=== PATIENT | male | born 1990 | race Two or more races ===

== ENCOUNTER 2016-12-18 17:58 | Emergency (ER) | payer OTHER ==
[~2016-12-18] VITALS: Ht 162.6 cm; Wt 72.3 kg
[~2016-12-18 17:58] MED LIST: BACTRIM,SEPT1 TABLET PO; BENADRYL50 MG PO; BENZTROPINE MESY1 MG PO; CHLORPROMAZINE100 MG PO; CHLORPROMAZINE200 MG PO; CLONIDINE HCL0.1 MG PO; CLONIDINE HCL0.2 MG PO; COGENTIN0.5 MG PO; COGENTIN1 MG PO; DOCUSATE SODIU100 MG PO; KEPPRA1000 MG PO; KEPPRA500 MG PO; KONSYL PSYLLIU3.4 GM PO; LEVETIRACETAM750 MG PO; LITHOBID300 MG PO; METAMUCIL FIBE3.4 GM PO; MIRALAX255 GM PO; NEURONTIN100 MG PO; NEURONTIN600 MG PO; OMEPRAZOLE20 MG PO; PAROXETINE HCL10 MG PO; PAROXETINE HCL20 MG PO; PAXIL20 MG PO; PRILOSEC20 MG PO; PROPRANOLOL HCL20 MG PO; PROPRANOLOL HCL60 M1 PO; PROPRANOLOL HCL80 M1 PO; QUETIAPINE FUM300 MG PO; SEROQUEL300 MG PO; SEROQUEL400 MG PO
[2016-12-18 22:52] VITALS: BP 121/69
== END 2016-12-18 22:55 | disposition home or self-care (01) ==
LOC: EME 17:58
DX: G40.909 Epilepsy, unspecified, not intractable, without status epilepticus (principal); F84.0 Autistic disorder; F79 Unspecified intellectual disabilities; F31.9 Bipolar disorder, unspecified; F90.9 Attention-deficit hyperactivity disorder, unspecified type; F41.9 Anxiety disorder, unspecified; S09.90XA Unspecified injury of head, initial encounter; S01.552A Open bite of oral cavity, initial encounter; X58.XXXA Exposure to other specified factors, initial encounter; M54.2 Cervicalgia
CPT/HCPCS: 70450; 72125; 99281; 99284; J2060

== ENCOUNTER 2017-02-21 15:32 | Emergency (ER) | payer OTHER ==
[~2017-02-21] VITALS: Ht 162.6 cm; Wt 75.2 kg
[2017-02-21 18:17] LABS: EOSINOPHIL (%) 2.9 % (0-5); EOSINOPHIL COUNT 0.2 K/uL (0-0.3); HEMATOCRIT 40.1 % (38.0-50.0); IMMATURE GRANULOCYTE (%) 0.3 % (0.0-0.7); INSTRUMENT ABS NEUTROPHIL CT 2.9 K/uL; LYMPHOCYTE COUNT 2.2 K/uL (1.0-2.8); MCHC 32.9 G/DL (30.0-36.0); MCV 82.2 FL (86-99); MEAN PLAT.VOLUME 9.2 uM^3 (9.0-12.4); MONOCYTE (%) 9.2 % (3-12); MONOCYTE COUNT 0.5 K/uL (0-0.8); NEUTROPHIL (%) 49.7 % (45-76); NEUTROPHIL COUNT 2.9 K/uL (1.8-6.4); PLATELET COUNT 188 K/uL (156-360); RBC DIS.WIDTH-CV 13.2 % (11.8-14.6); RBC DIS.WIDTH-SD 39.8 % (39-53); RED BLOOD COUNT 4.88 M/uL (4.00-5.50); WHITE BLOOD COUNT 5.8 K/uL (4.1-10.2)
[2017-02-21 18:25] LABS: CHLORIDE 108 mEq/L (99-109); POTASSIUM 3.8 mEq/L (3.7-5.4); SODIUM 139 mEq/L (136-147)
[2017-02-21 18:27] LABS: GLUCOSE 102 mg/dL (70-99)
[2017-02-21 18:28] LABS: ANION GAP 10 MEQ/L (2-14)
[2017-02-21 18:29] LABS: TOTAL BILIRUBIN 0.2 mg/dL (0.0-1.0)
[2017-02-21 18:30] LABS: ALKALINE PHOSPHATASE 92 IU/L (3-129)
[2017-02-21 18:31] LABS: GFR ESTIMATE (CALCULATED) > 59 mL/min/
[2017-02-21 18:32] LABS: UREA NITROGEN (BUN) 12 mg/dL (9-23)
[2017-02-21 18:34] LABS: LIPASE 29 U/L (1.0-51.0)
[2017-02-21] MEDS ORDERED: SENOKOT,SENN1 TABLET PO (19:11)
[2017-02-21 20:02] VITALS: BP 103/73
== END 2017-02-21 20:03 | disposition home or self-care (01) ==
LOC: EME 15:32
PROVIDERS: Emergency Medicine
DX: K59.00 Constipation, unspecified (principal); R10.9 Unspecified abdominal pain; F84.0 Autistic disorder; F90.9 Attention-deficit hyperactivity disorder, unspecified type; F31.9 Bipolar disorder, unspecified; R56.9 Unspecified convulsions; F79 Unspecified intellectual disabilities
CPT/HCPCS: 74000; 80053; 81003; 83690; 85025; 99281; 99284; J1630; J2060

== ENCOUNTER 2017-06-29 18:09 | Emergency (ER) | payer OTHER ==
[~2017-06-29] VITALS: Ht 160 cm; Wt 70.1 kg
[~2017-06-29 18:09] MED LIST changes: +SENOKOT,SENN1 TABLET PO
[2017-06-29 20:57] VITALS: BP 115/79
== END 2017-06-29 20:55 | disposition left against medical advice (07) ==
LOC: EME 18:09
DX: K59.00 Constipation, unspecified (principal); Z53.21 Procedure and treatment not carried out due to patient leaving prior to being seen by health care provider
CPT/HCPCS: 80053; 85027

== ENCOUNTER 2017-07-06 10:53 | Emergency (ER) | payer OTHER ==
[~2017-07-06] VITALS: Ht 160 cm; Wt 71.0 kg
[2017-07-06 12:08] LABS: HEMATOCRIT 44.4 % (38.0-50.0); HEMOGLOBIN 14.7 G/DL (12.5-16.6); MCH 27.9 PG (29.0-34.0); MCHC 33.1 G/DL (30.0-36.0); MCV 84.3 FL (86-99); PLATELET COUNT 183 K/uL (156-360); RBC DIS.WIDTH-CV 13.3 % (11.8-14.6); RBC DIS.WIDTH-SD 41.2 % (39-53); RED BLOOD COUNT 5.27 M/uL (4.00-5.50); WHITE BLOOD COUNT 5.6 K/uL (4.1-10.2)
[2017-07-06 12:23] LABS: CHLORIDE 109 mEq/L (99-109); POTASSIUM 4.1 mEq/L (3.7-5.4); SODIUM 139 mEq/L (136-147)
[2017-07-06 12:24] LABS: GLUCOSE 89 mg/dL (70-99)
[2017-07-06 12:28] LABS: CREATININE 1.3 mg/dL (0.6-1.3); GFR ESTIMATE (CALCULATED) > 59 mL/min/ (58.99-99999)
[2017-07-06 12:29] LABS: UREA NITROGEN (BUN) 18 mg/dL (9-23)
[2017-07-06 15:31] VITALS: BP 105/80
== END 2017-07-06 15:41 | disposition home or self-care (01) ==
LOC: EME 10:53
PROVIDERS: Emergency Medicine
DX: G40.909 Epilepsy, unspecified, not intractable, without status epilepticus (principal); F84.0 Autistic disorder; F90.9 Attention-deficit hyperactivity disorder, unspecified type; F41.9 Anxiety disorder, unspecified; F31.9 Bipolar disorder, unspecified
CPT/HCPCS: 71045; 80048; 80178; 85027; 99281; 99284; J2060

== ENCOUNTER 2017-12-27 16:13 | Emergency (ER) | payer OTHER ==
[~2017-12-27] VITALS: Ht 170.2 cm; Wt 66.2 kg
[2017-12-27 17:23] LABS: BASOPHIL (%) 0.6 % (0-1); EOSINOPHIL (%) 1.4 % (0-5); EOSINOPHIL COUNT 0.1 K/uL (0-0.3); HEMATOCRIT 39.8 % (38.0-50.0); HEMOGLOBIN 13.4 G/DL (12.5-16.6); IMMATURE GRANULOCYTE (%) 0.4 % (0.0-0.7); LYMPHOCYTE (%) 28.8 % (15-42); LYMPHOCYTE COUNT 1.5 K/uL (1.0-2.8); MCH 28.3 PG (29.0-34.0); MCHC 33.7 G/DL (30.0-36.0); MCV 84.1 FL (86-99); MONOCYTE (%) 8.8 % (3-12); MONOCYTE COUNT 0.5 K/uL (0-0.8); NEUTROPHIL COUNT 3.1 K/uL (1.8-6.4); PLATELET COUNT 155 K/uL (156-360); RBC DIS.WIDTH-CV 13.5 % (11.8-14.6); RED BLOOD COUNT 4.73 M/uL (4.00-5.50); WHITE BLOOD COUNT 5.1 K/uL (4.1-10.2)
[2017-12-27 17:35] LABS: CHLORIDE 111 mEq/L (99-109); SODIUM 141 mEq/L (136-147)
[2017-12-27 17:37] LABS: GLUCOSE 105 mg/dL (70-99)
[2017-12-27 17:41] LABS: CREATININE 1.3 mg/dL (0.6-1.3); GFR ESTIMATE (CALCULATED) > 59 mL/min/ (58.99-99999)
[2017-12-27 17:42] LABS: UREA NITROGEN (BUN) 16 mg/dL (9-23)
[2017-12-27 20:33] VITALS: BP 121/86
== END 2017-12-27 20:34 | disposition home or self-care (01) ==
LOC: EME 16:13
PROVIDERS: Emergency Medicine
DX: R53.1 Weakness (principal); R25.1 Tremor, unspecified; R53.83 Other fatigue
CPT/HCPCS: 70450; 80048; 81003; 85025; J2250